=== PATIENT | male | born 1960 | race Hispanic/Latino ===

== ENCOUNTER 2024-02-29 05:09 | Observation (INO) | payer BC ==
[2024-02-24 13:14] VITALS: BP 146/85; PULSE 65; RESP 18
[2024-02-29] VITALS (25 sets, daily range): BP systolic 105–146; BP diastolic 56–84; PULSE 58–98; RESP 13–19; O2SAT 94–98
[~2024-02-29] VITALS: Ht 182.9 cm; Wt 94.3 kg
[~2024-02-29 05:09] MED LIST: AMLO-257 PO; EZET-80 PO; VALS160T29 PO
[2024-02-29] MEDS: CEFAZOLIN SODIUM 2 GM VIAL ONE (07:30)
[2024-02-29] MEDS: LACTATED RINGERS 1000ML 1,000 ML IV ONE (07:31)
[2024-02-29] MEDS ORDERED: LIDOCAINE PF 100MG/5ML (2%) SYRINGE 5ML ONE (11:36)
[2024-02-29] MEDS ORDERED: MIDAZOLAM HCL 1 MG/ML 2ML VIAL ONE (11:38)
[2024-02-29] MEDS ORDERED: PROPOFOL 10 MG/ML 20ML VIAL IV ONE (11:38)
[2024-02-29] MEDS ORDERED: ROCURONIUM BROMIDE 10MG/1ML 5ML VL ONE ×2 (11:39→13:00)
[2024-02-29] MEDS ORDERED: FENTANYL CITRATE PF 50 MCG/1 ML 2ML VIAL ONE ×2 (11:39→12:48)
[2024-02-29] MEDS ORDERED: PHENYLEPHRINE HCL 10 MG/ML 1ML VIAL IV ONE (12:24)
[2024-02-29] MEDS ORDERED: EPHEDRINE SULFATE 50 MG/ML AMPULE ONE (12:35)
[2024-02-29] MEDS: TRANEXAMIC ACID 1000MG/10ML ONE ×2 (12:40→14:08)
[2024-02-29] MEDS ORDERED: DEXAMETHASONE SOD PHOSPHATE 10MG/ML 1ML VIAL ONE (12:47)
[2024-02-29] MEDS ORDERED: ONDANSETRON 4MG INJ ONE (12:48)
[2024-02-29] MEDS: 0.9%NACL 48.45 ML, ROPIVACAINE 0.5% 49.25ML, EPINEPH 0.5MG KETOROLAC 30MG,CLONIDINE 80MCG IV PRN (13:03)
[2024-02-29] MEDS: GENTAMICIN SULFATE 80 MG/2 ML VIAL ONE (13:03)
[2024-02-29] MEDS: CEFAZOLIN SODIUM 1 GM VIAL ONE (13:03)
[2024-02-29] MEDS ORDERED: GLYCOPYRROLATE 0.2 MG/ML 5 ML VIAL ONE (14:12)
[2024-02-29] MEDS ORDERED: NEOSTIGMINE METHYLSULFATE 1MG/ML IV ONE (14:12)
[2024-02-29] MEDS ORDERED: DIPHENOXYLATE HCL/ATROPINE 2.5/0.025 MG TAB PO PRN (16:30)
[2024-02-29] MEDS ORDERED: ONDANSETRON 4MG INJ IVP PRN (16:30)
[2024-02-29] MEDS ORDERED: ACETAMINOPHEN 325 MG TAB PO PRN ×2 (16:30→17:00)
[2024-02-29] MEDS ORDERED: DIPHENHYDRAMINE HCL 25 MG CAPSULE PO PRN (16:30)
[2024-02-29] MEDS ORDERED: MAG/ALUM/SIMETH 30 ML UDCUP PO PRN (16:30)
[2024-02-29] MEDS ORDERED: DiphenhydrAMINE HCL 50 MG/ML VIAL IM PRN (16:30)
[2024-02-29] MEDS ORDERED: LACTULOSE 20 GM/30 ML UDCUP PO PRN (16:30)
[2024-02-29] MEDS ORDERED: COMPOUND IV REFRIGERATED 1 EACH IVSOLN MISC PRN (17:00)
[2024-02-29] MEDS ORDERED: TRAMADOL HCL 50 MG TABLET PO PRN (17:00)
[2024-02-29] MEDS: HYDROMORPH /0.9% NACL/PF PCA 50 ML IV ONE (17:08)
[2024-02-29] MEDS: HYDROMORPH /0.9% NACL/PF PCA 50 ML IV PRN (17:08)
[2024-02-29] MEDS: 0.9%NACL 1000ML 1,000 ML IV SCH (17:08)
[2024-02-29] MEDS: CEFAZOLIN SODIUM 3 GM in DEXTROSE 5%-WATER 100 ML IVPB SCH (21:56)
[2024-02-29] MEDS ORDERED: CEFAZOLIN SODIUM 2 GM VIAL IVPB SCH (22:30)
[2024-03-01] VITALS: BP 120/75; PULSE 84; RESP 19
[2024-03-01] MEDS: BENZOCAINE/MENTH/CETYLPYRD CL 1 EACH LOZENGE MM PRN (03:26)
[2024-03-01 04:00] VITALS: BP 117/78; PULSE 74; RESP 19
[2024-03-01 04:23] LABS: BASOPHILS # (AUTO) 0.01 K/uL (0.00-0.20); BASOPHILS % (AUTO) 0.1 % (0.0-5.0); HEMATOCRIT 32.9 % (42-54); IMMATURE GRANULOCYTE ABSOLUTE 0.08 K/uL (0-1); LYMPHOCYTES % (AUTO) 6.8 % (21.0-51.0); MEAN CORPUSCULAR HGB CONC 35.3 g/dL (32.0-36.0); MEAN CORPUSCULAR VOLUME 90.9 fL (79-99); MONOCYTES # (AUTO) 0.6 K/uL (0.1-1.0); MONOCYTES % (AUTO) 4.3 % (3.0-13.0); NEUTROPHILS # (AUTO) 12.4 K/uL (1.8-7.7); NEUTROPHILS % (AUTO) 88.2 % (40.0-77.0); PLATELET COUNT (AUTO) 186 K/uL (130-400); RED BLOOD CELL COUNT(AUTO) 3.62 MIL/uL (4.50-6.20); RED CELL DISTRIBUTION WIDTH 12.8 % (11.0-15.5); WHITE BLOOD COUNT (AUTO) 14.1 K/uL (4.8-10.8)
[2024-03-01 04:41] LABS: WBC MORPHOLOGY CONSISTENT W/DIFF
[2024-03-01 04:51] LABS: CREATININE 0.8 mg/dL (0.5-1.3); POTASSIUM 4.1 mmol/L (3.5-5.1)
[2024-03-01 07:08] LABS: ALBUMIN 3.3 g/dL (3.5-5.0); BILIRUBIN,TOTAL 0.4 mg/dL (0.2-1.0); TOTAL PROTEIN, SERUM 6.3 g/dL (6.0-8.3)
[2024-03-01 07:50] VITALS: O2SAT 97
[2024-03-01] MEDS: FAMOTIDINE 20MG TAB PO SCH (08:31)
[2024-03-01] MEDS: AMLODIPINE 5 MG TAB PO SCH (08:31)
[2024-03-01] MEDS: RIVAROXABAN 10 MG TABLET PO SCH (08:31)
[2024-03-01] MEDS: Valsartan 160 MG PO SCH (08:39)
[2024-03-01 09:09] VITALS: BP 126/75; PULSE 69; RESP 16
[2024-03-01 12:12] VITALS: BP 139/85; PULSE 71; RESP 16
[2024-03-02] MEDS ORDERED: SIMVASTATIN PO SCH (09:00)
[2024-03-02] MEDS ORDERED: EZETIMIBE PO SCH (09:00)
== END 2024-03-01 15:00 | disposition home or self-care (01) ==
LOC: DAH 05:09 → DAHIP 05:10 → 4CH 16:10
PROVIDERS: ADMIT Orthopaedic Surgery; ATTEND Orthopaedic Surgery
DX: M17.11 Unilateral primary osteoarthritis, right knee (principal); M81.0 Age-related osteoporosis without current pathological fracture; E78.5 Hyperlipidemia, unspecified; D72.829 Elevated white blood cell count, unspecified; D62 Acute posthemorrhagic anemia; E87.1 Hypo-osmolality and hyponatremia; R73.9 Hyperglycemia, unspecified; I10 Essential (primary) hypertension; I25.10 Atherosclerotic heart disease of native coronary artery without angina pectoris; F17.210 Nicotine dependence, cigarettes, uncomplicated
CPT/HCPCS: 93005; 87641; 27447; 96365; 96366 ×2; 96367; 97161; 97012; 97116 ×3; 97530 ×5; 83036; 83735; 80053; 85025; 36415; A6260; G0378 ×20; A4663; J7120 ×2; A4215 ×2; A4649 ×4; J3010 ×2; J0690 ×3; J3490 ×6; J1100; J2001; J1580; J2250; J7060; J2704; J2405; J2710; J2371; A6223; C1763 ×2; C1776; A5120; A4223; A4222; A4221; A6450; J7030; A4510